=== PATIENT | female | born 1965 | race Caucasian/White ===

== ENCOUNTER 2017-01-19 13:00 | Observation (INO) | payer MEDICAID ==
--- NOTE | 2017-01-19 14:41 | PREOPERATIVE H&P ---
History of Present Illness (Yrn Vela M.D.; 01/19/2017 1:50 PM) The patient is a 51 year old female who presents with abnormal vaginal bleeding. The bleeding has been occurring for 1 month in a daily pattern. The bleeding has been heavy and has required 6 pads/day (the large maxipads). The patient is currently bleeding. The bleeding has been accompanied by passage of blood clots. The bleeding was precipitated by nothing (spontaneous) (started at normal time for her menstrual cycles which had been very regular until now). Menses: regular. Currently : no (recent negative test). The symptoms have been associated with painful menses, while the symptoms have not been associated with breast engorgement, fever, hot flashes, syncope, acne, galactorrhea or hirsutism. There is a medical history of thyroid disease and , while there is no history of diabetes, pelvic inflammatory disease, use of an intrauterine device, exposure to MEREDITH, tubal sterilization or endometrial ablation. The patient has been using thyroid medications, while she denies the use of anticoagulants or aspirin. Previous diagnostic tests have included PAP smear (negative and HPV negative in 2012), biopsy (benign, disordered proliferative endometrium), ultrasound exam (no distinct leiomyoma seen but uterus larger than her previous ultrasound, no adnexal pathology noted) , laboratory tests (no anemia or microcytosis), screening, sexually transmitted disease (negative) and CT scan (lobular uterus consistent with leiomyoma). Current treatment includes oral contraceptives . Results of current therapy includes other (improved, still a small amount of spotting). Preop Visit is described as the following: Surgical procedures include: TVH. The reason for surgery is leiomyoma and menorrhagia. Date of procedure: (01/25/2017). Planned anesthesia: general anesthesia . Cardiac risk factors include: hypertension. Risk factors for post operative thromboembolism includes: age > 50 and oral contraceptives. In depth conversation with the patient/guardian concerning the procedure, risks, complications, benefits, alternatives and need for further surgery or intervention questions were answered and no guarantees were made. Problem List/Past Medical (Yrn Vela M.D.; 01/19/2017 1:13 PM) Allergic rhinitis (477.9) (J30.9) Hypertension (I10) Hypothyroidism (E03.9) Allergies (Yrn Vela M.D.; 01/19/2017 1:13 PM) MANAV Inhibitors (Lisinopril, Enalopril, Benazipril...)12/17/2016 Rash. Sulfa Drugs (Bactrim, Pediazole, Septra...)12/17/2016 Anaphylaxis. Family History (Yrn Vela M.D.; 01/19/2017 1:13 PM) Brother 1 DMI; panic attacks Cerebrovascular Accident Paternal Grandmother, Maternal Grandmother Diabetes Mellitus Type I Brother Hypercholesterolemia Father Hypertension Father Uterine cancer Mother, Maternal great grand mother Social History (Virgie Cole, RN; 01/19/2017 1:41 PM) Tobacco use Remotely quit tobacco use. 1998, age 36 Alcohol use Occasional alcohol use. Medication History (Virgie Cole RN; 01/19/2017 1:41 PM) Microgestin 1.5/30 (1.5-30MG-MCG Tablet, 1 (one) Tablet Oral see directions, Taken starting 12/28/2016) Active. (Take 2 pills immediately and 2 at bedtime, then 1 pill four times a day on Tuesday. Then 1 pill twice a day for 7 days, then 1 pill daily. DO NOT TAKE THE PLACEBO PILLS.) Levothyroxine Sodium (25MCG Tablet, 1 Oral daily, Taken starting 11/21/2014) Active. (in the morning, Eleanor Roche N.P. [facility]) Hydrochlorothiazide (25MG Tablet, 2 Oral daily, Taken starting 05/21/2014) Active. (in the morning, for HTN/Dr. Crawford, D.O.) Benadryl Allergy (25MG Capsule, 4 Oral at bedtime) Active. (for sleep) Medications Reconciled / History (Yrn Vela M.D.; 01/19/2017 1:14 PM) Deliveries (Parity) 1001 Delivery Mode vaginal Pregnancies () 1 Past Surgical History (Yrn Vela M.D.; 01/19/2017 1:14 PM) Hernia [id number]/28/2016 Ventral, Dr. Cage Remove benign [id number]/28/2015 lipoma abdomen, Dr. Cage Review of Systems (Yrn Vela M.D.; 01/19/2017 1:13 PM) General Not Present- Night Sweats. Skin Not Present- Rash. HEENT Present- Corrective lenses. Neck Not Present- Neck Stiffness. Respiratory Not Present- Chronic Cough. Breast Not Present- Breast Mass, Breast Pain, Nipple Discharge and Skin Changes. Cardiovascular Not Present- Chest Pain. Gastrointestinal Not Present- Abdominal Pain, Bloating, Bloody Stool and Change in Bowel Habits. Female Genitourinary Not Present- Dysuria, Frequency, Hematuria, Incontinence, Urgency, Vaginal itching and Vulvar itching. Musculoskeletal Not Present- Joint Redness. Neurological Not Present- Focal Neurological Symptoms. Endocrine Not Present- Hot flashes. Hematology Not Present- DVT, Enlarged Lymph Nodes and Spontaneous Bleeding. Vitals (Virgie Cole RN; 01/19/2017 1:40 PM) 01/19/2017 1:38 PM Weight: 199 lb Height: 65.75in Body Surface Area: 1.99 m Body Mass Index: 32.36 kg/m Pulse: 83 (Regular) Resp.: 16 (Unlabored) P.OX: 94% (Room air) BP: 119/77 (Sitting, Left Arm, Standard) Physical Exam (Yrn Vela M.D.; 01/19/2017 1:15 PM) General General Appearance-Not in acute distress. Integumentary Integumentary General Characteristics Overall examination of the patient's skin reveals - no rashes. Head and Neck Neck Global Assessment - full range of motion, No lymphadenopathy. Thyroid Gland Characteristics - normal size and consistency and no palpable nodules. ENMT Mouth and Throat Oral Cavity/Oropharynx - Oropharynx - no evidence of airway distress observed. Chest and Lung Exam Chest and lung exam reveals -Clear and quiet, even and easy respiratory effort with no use of accessory muscles. Cardiovascular Cardiovascular examination reveals -normal heart sounds, regular rate and rhythm with no murmurs. Abdomen Inspection Inspection of the abdomen reveals - No Hernias. Palpation/Percussion Palpation and Percussion of the abdomen reveal - Non Tender, No hepatosplenomegaly and No Palpable abdominal masses. Other Characteristics - No Costovertebral angle tenderness - Left, No Costovertebral angle tenderness - Right. Female Genitourinary External Genitalia Vulva - Characteristics - Normal. Labia Majora - Characteristics - Bilateral - Normal. Perineum - Intact. Clitoris - Normal. Labia Minora - Characteristics - Bilateral - Normal. Introitus - Characteristics - Non Tender. Bartholin's Gland - Bilateral - Non Tender. Urethra - Characteristics - Normal. Urethral Meatus - Characteristics - No Urethral Caruncle. Wales Gland - Bilateral - Normal. Speculum & Bimanual Vagina - Vaginal Wall - Normal. Vaginal Lesions - None. Vaginal Mucosa - Mccracken and Rugae, No Secretions. Cervix - Characteristics - Parous, No Motion tenderness. Discharge - Copious and Bloody. Uterus - Characteristics - Nodular, Non Tender. Position - Anteverted. Fundal Height - Just above symphysis pubis. Adnexa - Characteristics - Bilateral - Non Tender. Masses - No Adnexal Masses. Bladder - Not Tender. Hospital Recruiter-present for exam . Peripheral Vascular Lower Extremity Palpation - Tenderness - Bilateral - Non Tender. Edema - Bilateral - No edema. Neuropsychiatric Mental status exam performed with findings of-Oriented X3 with appropriate mood and affect. Lymphatic Axillary Supraclavicular Nodes: Bilateral - Supraclavicular Lymph Nodes - No supraclavicular lymphadenopathy. Assessment & Plan (Yrn Vela M.D.; 01/19/2017 2:05 PM) Uterine leiomyoma, unspecified location (D25.9) Current Plans Pt Education - local area network administrator Preoperative Instructions Abnormal uterine bleeding (N93.9) Pre-procedural laboratory examinations (Z01.812) Current Plans URINALYSIS (97460) METABOLIC PANEL, BASIC (13964) URINE PREG TEST-VIS COL (49561) BLD CNT, COMPL CBC W/AUTO DIFF WBC (79277) ABO BLOOD TYPING (81745) RBC ANTBDY SCRN-EA TECH (33046) RH (D) BLOOD TYPING (34271) Signed by Yrn Vela M.D. (01/19/2017 2:33 PM) MTDD
[2017-01-25] MEDS ORDERED: CEFOXITIN SODIUM 1 GM in NORMAL SALINE MINI-BAG+ 100 ML IV ONE (06:18)
[2017-01-25] MEDS ORDERED: CEFOXITIN SODIUM 1 GM/10 ML VIAL ONE (06:31)
[2017-01-25] MEDS ORDERED: ONDANSETRON HCL 4 MG/2 ML VIAL IV ONE (06:53)
[2017-01-25] MEDS ORDERED: MIDAZOLAM HCL 2 MG/2 ML SYR IV ONE (06:53)
[2017-01-25] MEDS ORDERED: SCOPOLAMINE 1.5 MG PATCH TD ONE ×2 (06:53→08:12)
[2017-01-25] MEDS ORDERED: LIDOCAINE HCL 1% 20 ML VIAL SUBCUT ONE ×2 (06:53→08:12)
[2017-01-25] MEDS ORDERED: METOCLOPRAMIDE HCL 10 MG/2 ML VIAL IV ONE (06:53)
[2017-01-25] MEDS ORDERED: LACTATED RINGERS 1,000 ML IV SCH ×4 (07:00→09:00)
[2017-01-25] MEDS ORDERED: FAMOTIDINE IN SALINE, ISO-OSM 20 MG/50 ML PIGGYBACK IV SCH ×2 (07:00→08:12)
[2017-01-25] MEDS ORDERED: ACETAMINOPHEN 1,000 MG/100 ML VIAL IV SCH ×2 (07:00→08:12)
[2017-01-25] MEDS ORDERED: FAMOTIDINE IN SALINE, ISO-OSM 50 ML IV ONE (07:09)
[2017-01-25] MEDS ORDERED: METOCLOPRAMIDE HCL 10 MG/2 ML VIAL ONE (07:09)
[2017-01-25] MEDS ORDERED: ACETAMINOPHEN 1,000 MG/100 ML VIAL IV ONE (07:09)
[2017-01-25] MEDS ORDERED: MIDAZOLAM HCL 2 MG/2 ML VIAL ONE (07:09)
[2017-01-25] MEDS ORDERED: SCOPOLAMINE 1.5 MG PATCH ONE (07:09)
[2017-01-25] MEDS ORDERED: ONDANSETRON HCL 4 MG/2 ML VIAL ONE ×2 (07:09→07:11)
[2017-01-25] MEDS ORDERED: ROCURONIUM BROMIDE 50 MG/5 ML VIAL IV ONE (07:10)
[2017-01-25] MEDS ORDERED: SUCCINYLCHOLINE CHLORIDE 200 MG/10 ML VIAL ONE (07:10)
[2017-01-25] MEDS ORDERED: FENTANYL 250 MCG/5 ML VIAL ONE (07:10)
[2017-01-25] MEDS ORDERED: METHYLENE BLUE 10 MG/ML VIAL IV ONE (07:11)
[2017-01-25] MEDS ORDERED: DEXAMETHASONE 10 MG/ML VIAL ONE (07:12)
[2017-01-25] MEDS ORDERED: KETOROLAC TROMETHAMINE 30 MG/ML VIAL ONE (07:12)
[2017-01-25] MEDS ORDERED: LIDOCAINE HCL 2% JELLY 1 APP/5 ML TUBE ONE (07:28)
[2017-01-25] MEDS ORDERED: HYDROmorphone HCL 1 MG/ML SYR IV PRN (08:12)
[2017-01-25] MEDS ORDERED: ONDANSETRON HCL 4 MG/2 ML VIAL IV PRN ×2 (08:12→10:16)
[2017-01-25] MEDS ORDERED: FENTANYL 100 MCG/2 ML VIAL IV PRN (08:12)
[2017-01-25] MEDS ORDERED: FENTANYL 100 MCG/2 ML VIAL ONE (09:46)
[2017-01-25] MEDS ORDERED: SUGAMMADEX SODIUM 200 MG/2 ML VIAL IV ONE (09:51)
--- NOTE | 2017-01-25 10:04 | PROCEDURE NOTE: GYN ---
ICING MAKER Procedure - Brief Operative Note Date of procedure: 01/25/17 Pre-Op Diagnosis: UTERINE LEIOMYOMA AND MENORRHAGIA Post-op diagnosis: same Procedure: Total vaginal hysterectomy and bilateral salpingectomy Findings: Leiomyoma, normal appearing ovaries. Anesthesia Type: General Physician: KASEY WASHINGTON Estimated Blood Loss: 300 Pathology: sent Sponge and instrument counts: correct Condition: stable Disposition: PACU Narrative: The patient is taken to the operating theater and placed supine on the operating table. General endotracheal anesthesia was induced. She is placed in dorsal lithotomy position using Bhavesh stirrups. Vagina and perineum are prepped, her bladder is drained, and then stained with indigo carmine dye. The patient is draped in the usual sterile fashion. The cervix is visualized and grasped with a double-tooth tenaculum. The vagina was incised circumferentially around the cervix. Using sharp and blunt dissection the anterior peritoneal reflection was identified and entered into sharply. A long retractor is then entered into this incision and the bladder is elevated. Posterior cul-de-sac was then entered into sharply and a long weighted retractor is entered into this incision. The uterosacral ligaments on both left and right sides are clamped cut and tied in a Paola fashion with 0 Vicryl sutures and tagged. Cardinal ligaments on both left and right sides are then clamped cut and ligated in Paola fashion with 0 Vicryl sutures. Uterine vessels on both left and right sides were then clamped cut and ligated in Paola fashion with 0 Vicryl sutures. The lower section of the broad ligament on both left and right sides are clamped cut and ligated in Paola fashion with 0 Vicryl sutures. Uterus is delivered posteriorly and the utero-ovarian round ligament complex on left right sides are clamped cut and ligated in Paola fashion with 0 Vicryl sutures. The uterus and cervix are removed and submitted to pathology. The left fallopian tube was mobilized and then the mesosalpinx is clamped cut and ligated in Paola fashion with 0 Vicryl sutures. The fallopian tube is submitted to pathology. The right fallopian tube is mobilized and the right mesosalpinx was clamped cut and ligated in Paola fashion with 0 Vicryl sutures. The fallopian tube is submitted to pathology. The posterior vaginal cuff was closed with a running interlocking 0 Vicryl suture. After assuring excellent hemostasis of all vascular pedicles the uterosacral ligament tags were attached to the lateral vaginal cuff, the anterior peritoneal reflection and exited the posterior cuff in the midline. The vaginal cuff is closed with multiple figure of eight 0-Vicryl sutures. The uterosacral ligament tags are tied in the midline with excellent support of the vaginal cuff. A Rodriguez catheter is placed to down drain, the patient placed supine on the operating table, awakened by anesthesia and taken to PACU.
[2017-01-25] MEDS ORDERED: ZOLPIDEM TARTRATE 5 MG TABLET PO PRN (10:16)
[2017-01-25] MEDS: FENTANYL 100 MCG/2 ML VIAL ONE ×2 (10:21→10:48)
[2017-01-25] MEDS ORDERED: NALOXONE HCL 0.4 MG/ML VIAL IV PRN (10:29)
[2017-01-25] MEDS ORDERED: HYDROmorphone HCL PCA 6 MG/30 ML PCA.VIAL IV PRN ×2 (10:29→15:09)
[2017-01-25] MEDS ORDERED: POTASSIUM CHLORIDE/D5 0.45%NAC 1,000 ML IV SCH (11:00)
[2017-01-25] MEDS ORDERED: DEXTROSE 5% LACTATED RINGERS 1,000 ML IV ONE (11:16)
[2017-01-25] MEDS: ACETAMINOPHEN 1,000 MG/100 ML VIAL IV SCH ×3 (11:41→22:46)
[2017-01-25] MEDS: SCOPOLAMINE 1.5 MG PATCH TD ONE ×2 (11:42→11:43)
--- NOTE | 2017-01-25 17:32 | PROGRESS NOTE: GYN Post-op ---
Assessment and Plan - Date of Encounter Date of Encounter: 01/25/17 (1) S/P gynecological surgery, follow-up exam Problem details: S/P TVH Status: Acute Assessment and plan: Doing well, will change to oral medications, advance diet. Remove catheter and ambulate. Current Visit: Yes - Time Spent With Patient Total time spent with greater than 50% in coordination of care (as documented) at patient's floor/unit and/or counseling patient: STACKER STRAIGHTENER: Post-op Note Subjective Interval History: Doing well since surgery, pain mild and well controlled. Taking po. Wants to have catheter removed and walk. Post-op Day: 0 Patient reports: pain well controlled, no nausea STACKER STRAIGHTENER: Post-op Note Objective - Latest Vital Signs and I&O Latest Vital Signs/I&O: Vital Signs Temp 35.8 C L 01/25/17 13:26 Pulse 93 H 01/25/17 16:30 Resp 16 01/25/17 13:26 BP 116/65 01/25/17 16:01 Pulse Ox 97 01/25/17 16:30 Intake & Output 01/24/17 01/25/17 01/25/17 17:59 05:59 17:59 Intake Total 2500 Output Total 200 Balance 2300 Weight 90.265 kg Intake: IV 2500 Left Hand 2500 Output: Urine 200 Straight 75 Other: Urine Appearance Clear Urine Color Green Indigo Straight Pale Yellow Uretheral (Rodriguez) Indigo Voiding Method Indwelling Catheter - Exam Lungs: Bilateral: normal Heart Rhythm: Present: regular Extremities: Absent: tenderness Abdomen: Present: soft. Absent: distention Bowel sounds: present Additional Comments: Good UO, clear
[2017-01-25] MEDS: DOCUSATE SODIUM 100 MG CAPSULE PO SCH (20:53)
[2017-01-25] MEDS: IBUPROFEN 600 MG TABLET PO PRN (23:27)
[2017-01-26 03:24] VITALS: PULSE 78
[2017-01-26] MEDS: ACETAMINOPHEN 1,000 MG/100 ML VIAL IV SCH (04:44)
[2017-01-26 06:03] LABS: BLOOD UREA NITROGEN 10 mg/dL (7-17); CALCIUM 7.8 mg/dL (8.4-10.2); CHLORIDE 103 mmol/L (98-107); EST GLOMERULAR FILTRATION RATE > 60 mL/min; GLUCOSE 97 mg/dL (70-100); POTASSIUM 3.1 mmol/L (3.5-5.1); SODIUM 135 mmol/L (137-145)
[2017-01-26 06:44] VITALS: BP 112/71; RESP 15; TEMP 98.1; O2SAT 95
[2017-01-26 06:53] LABS: HEMATOCRIT 30.1 % (36.0-48.0); HEMOGLOBIN 9.7 g/dL (12.0-16.0); RED BLOOD COUNT 3.15 X 10^6uL (4.20-6.10); WHITE BLOOD COUNT 8.7 X 10^3uL (3.9-10.7)
[2017-01-26 06:54] LABS: BAND% (Manual) 5 % (0.0-1.0); LYMPHOCYTE % (Manual) 23 % (20.0-40.0); MEAN CORPUS. HGB CONCENTRATION 32.2 g/dL (32.0-36.0); MEAN CORPUSCULAR HEMOGLOBIN 30.7 pg (29.0-35.0); MONOCYTE % (Manual) 3 % (2.0-10.0); NEUTROPHIL % (Manual) 69 % (54.0-75.0); PLATELET COUNT 146 X 10^3uL (130-440)
[2017-01-26 06:55] LABS: PLATELET ESTIMATE ADEQUATE
--- NOTE | 2017-01-26 08:27 | DC SUMMARY: Obstetrical/GYN ---
Discharge Summary: Surg/OB Provider: Date of Admission: 01/25/17 Admitting Provider: KASEY VELA MD Attending Provider: KASEY VELA MD Discharging Provider: KASEY VELA MD Primary Care Provider: Discharge Date: 01/26/17 - Diagnosis (1) S/P gynecological surgery, follow-up exam Status: Acute Hospital Course: Ms. PEDRO ALSTON is a 51 year old female admitted for TVH for symptomatic leiomyoma. Her surgery was without complication and she did well after surgery with good bowel and bladder function. She is discharged the morning after surgery in good condition. Discharge - Patient/Caregiver Discharge Instructions Activity Level: Pelvic and abdominal rest Diet: Regular Additional Instructions: Kasey Vela M.D. [address], [address] [place] [address] PHONE [phone] FAX [phone] Reviewed 04/2015 Post Hysterectomy and/or Vaginal Repair 1. Please make an appointment for your first post operative check up to see me one week from the date of surgery. Your second post operative appointment should be made six weeks from the date of your surgery. Call the clinic to make these appointments. Do not hesitate to call me, or my nurse, with any questions or problems. 2. Get plenty of rest. You will tire more easily than you might expect. It would be best for you to restrict your activities until after your first post operative visit. As you feel up to it, you may increase your activity. Use your own judgment, listen to your body, and take frequent short rests as you become tired. Your restrictions will probably be lifted after your second post operative visit. 3. You will receive a prescription for pain pills upon hospital discharge. I recommend you alternate these with ibuprofen. If needed, take as directed. Contact me if strength is inadequate. Do not drive a car or operate machinery as long as you are taking narcotic pain medication. 4. No heavy lifting or straining. Do not lift anything more than 20 pounds. 5. You may climb stairs but try to make the trip worthwhile. Do not walk up and down excessively. 6. Take only showers for the first two weeks. Sitz baths may be taken to help relieve perineal discomfort. Baths may be taken after two weeks if desired. 7. You may have vaginal spotting for approximately four to six weeks. There may be an odor or you may pass suture material. Use mini or maxi pads. The bleeding should not be heavier than a normal period. Report any bleeding heavier than a period to me immediately. 8. Bleeding may be heavier after activity. If your bleeding does not slow down after resting, please notify me immediately. 9. No pelvic activity. No tampons, douching or intercourse. 10. If bladder surgery was performed, it may take days or even weeks for your bladder to perform adequately. You may go home with a bladder catheter which will be removed the week after surgery. Do not go longer than four hours without voiding during the day time. 11. If you feel constipated, use Milk of Magnesia at bedtime. 12. Eat a well-balanced diet. You should drink 6-8 glasses of fluid per day. Fresh fruits, green leafy vegetables, bran cereals and whole wheat breads should be eaten to prevent constipation. If necessary, stool softeners may be obtained at the pharmacy without a prescription. Use as directed. 13. Report any vomiting or fever above 100.5 degrees immediately. 14. I can be reached through the hospital nursing station ([phone]), Charge Nurse ([phone]) or Hospital Dressmaking Teacher ([phone]). Kasey Vela M.D. 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, SELF-CARE Obstetrical/VENDING MACHINE OPERATOR Discharge Exam - Latest Vital Signs and I&O Latest Vital Signs/I&O: Vital Signs Temp 36.7 C 01/26/17 06:43 Pulse 78 01/26/17 06:43 Resp 15 01/26/17 06:43 BP 112/71 01/26/17 06:43 Pulse Ox 95 03/08/17 06:43 Intake & Output 01/25/17 01/26/17 01/26/17 17:59 05:59 17:59 Intake Total 2500 1250 Output Total 200 875 Balance 2300 375 Weight 90.265 kg Intake: IV 2500 Left Hand 2500 Oral 1250 Output: Urine 200 875 Straight 75 Other: Urine Appearance Clear Clear Urine Color Green Yellow Indigo Straight Pale Yellow Uretheral (Rodriguez) Indigo Voiding Method Indwelling Catheter Toilet # Voids 4 # Bowel Movements 0 - Exam Lungs: Bilateral: normal Heart Rhythm: Present: regular Extremities: Absent: tenderness Abdomen: Present: soft. Absent: distention Bowel sounds: present Discharge Summary Data - Medication History Medication History: Home Medications Diphenhydramine [Benadryl*] 100 mg PO HS PRN 05/27/15 Hydrochlorothiazide [Hydrodiuril*] 50 mg PO DAILY 05/27/15 Levothyroxine [Synthroid*] 50 mcg PO DAILY 05/27/15 Inpatient Medications 01/25/17 10:16 Acetaminophen [Ofirmev Inj] 1,000 mg IV Q6H Ondansetron HCl [Zofran] 4 mg IV Q6H PRN Zolpidem Tartrate [Ambien] 5 mg PO HS PRN oxyCODONE HCL IR [Oxy Ir] 5 mg PO Q3H PRN 01/25/17 17:27 Ibuprofen [Motrin] 600 mg PO Q6H PRN 01/25/17 21:00 Docusate Sodium [Colace] 100 mg PO BID Procedures and tests throughout hospitalization: Completed Lab Orders 01/26/17 05:15 BASIC METABOLIC PANEL [CHEM] AMDRAW CBC W/ MANUAL DIFFERENTIAL [HEM] Stat Pending Orders 01/19/17 15:28 Resuscitation Status Routine 01/25/17 06:18 Anesthesia Type . Insert Peripheral IV ONCE NPO After midnight 0000 Pre-op by anesthesia . Sequential Compression Device WHILE IN BED 01/25/17 06:53 Anesthesia Type . Insert Peripheral IV ONCE 01/25/17 08:12 Franki hugger if temp <34 C PRN Notify Anesthesia . Titrate Oxygen TITRATE TO >90% Warm blankets if temp<36 C PRN 01/25/17 10:16 Admit: Observation Routine Incentive Spirometry Q1H Intake and Output QSHIFT I&O K Pad PRN Notify Physician PRN Straight Cath IF BS>500MLS Teach: Post Hysterectomy &/or . Turn, Cough, and Deep Breathe Q1H Acetaminophen [Ofirmev Inj] 1,000 mg IV Q6H Ondansetron HCl [Zofran] 4 mg IV Q6H PRN Zolpidem Tartrate [Ambien] 5 mg PO HS PRN oxyCODONE HCL IR [Oxy Ir] 5 mg PO Q3H PRN 01/25/17 10:30 Assess pulse oximetry CONTINUOUS HydromorphonePCA Setting Order . Oxygen by Nasal Cannula 2 L/MIN 01/25/17 17:27 Ibuprofen [Motrin] 600 mg PO Q6H PRN 01/25/17 18:44 Vital Signs ROUTINE VITALS (Q4H) 01/25/17 21:00 Docusate Sodium [Colace] 100 mg PO BID 01/25/17 Dinner Regular [DIET] 01/26/17 09:00 May shower with wound uncovere POD #1 Remove urinary catheter POD #1 01/26/17 10:05 Activity: Ambulate with Assist TID Labs on day of discharge: Labs from last 24 hours 01/26/17 05:15 WBC 8.7 RBC 3.15 L Hgb 9.7 L Hct 30.1 L MCV 95.0 D MCH 30.7 MCHC 32.2 RDW Not Reportable Plt Count 146 MPV Not Reportable Total Counted 100 Neutrophils % Cancelled Neutrophils % (Manual) 69 Band Neuts % (Manual) 5 H Lymphocytes % Cancelled Lymphocytes % (Manual) 23 Monocytes % (Manual) 3 Eosinophils % Cancelled Basophils % Cancelled Neutrophils # Cancelled Lymphocytes # Cancelled Monocytes Cancelled Monocytes # Cancelled Eosinophils # Cancelled Basophils # Cancelled Platelet Estimate Adequate Hypochromic-Microcytic 10-19% of cells Anisocytosis 10-19% of cells Macrocytosis 10-19% of cells Sodium 135 L Potassium 3.1 L D Chloride 103 Carbon Dioxide 26 BUN 10 Creatinine 1.0 GFR Calculation > 60 Glucose 97 Calcium 7.8 L
[2017-01-26] MEDS: IBUPROFEN 600 MG TABLET PO PRN (08:30)
[2017-01-26] MEDS: DOCUSATE SODIUM 100 MG CAPSULE PO SCH (08:30)
== END 2017-01-26 08:27 | disposition home or self-care (01) ==
LOC: INTOOBSV 01-25 06:07 → IN 01-25 06:07
PROVIDERS: ADMIT Obstetrics & Gynecology; ATTEND Obstetrics & Gynecology
DX: D25.2 Subserosal leiomyoma of uterus (principal); N93.9 Abnormal uterine and vaginal bleeding, unspecified; I10 Essential (primary) hypertension; E03.9 Hypothyroidism, unspecified; J30.9 Allergic rhinitis, unspecified; Z79.899 Other long term (current) drug therapy
CPT/HCPCS: 36415; 80048; 85007; 85027; G0378; G0379; J0694; J1100; J1885; J2250; J2405; J2765